=== PATIENT | female | born 1945 | race Caucasian/White ===

== ENCOUNTER 2017-02-18 11:01 | Outpatient (CLI) | payer MEDICARE, OTHER | END 2017-02-18 11:02 | disposition home or self-care (01) | DX: Z12.11 Encounter for screening for malignant neoplasm of colon (principal); Z79.899 Other long term (current) drug therapy; Z12.12 Encounter for screening for malignant neoplasm of rectum; H26.9 Unspecified cataract; C73 Malignant neoplasm of thyroid gland; M81.0 Age-related osteoporosis without current pathological fracture; E78.5 Hyperlipidemia, unspecified; E11.9 Type 2 diabetes mellitus without complications; A60.9 Anogenital herpesviral infection, unspecified; R03.0 Elevated blood-pressure reading, without diagnosis of hypertension; M67.40 Ganglion, unspecified site ==

== ENCOUNTER 2017-02-27 14:14 | Outpatient (CLI) | payer MEDICARE, OTHER ==
--- NOTE | 2017-02-28 12:20 | DEXA Report ---
DEXA SCAN: 02/27/2017 CLINICAL INDICATION: Osteoporosis. TECHNIQUE: Dual energy x-ray absorptiometry (DXA) was performed on a [employer] system. Regions measured are the AP spine, femoral neck, and, if needed, forearm. COMPARISON: None. In accordance with the International Society for Clinical Densitometry (ISCD) guidelines, data from previous exams may be reanalyzed using current recommendations and techniques. This is done to allow a more accurate basis for comparison with the current study. FINDINGS: The data for the lumbar spine is as follows: REGION BMD (g/cm/cm) T-SCORE Z-SCORE L1 0.950 -1.5 0.1 L2 1.069 -1.1 0.5 L3 1.133 -0.6 1.0 L4 1.188 -0.1 1.5 TOTAL 1.094 -0.7 0.9 NOTE: All evaluable vertebrae are used for classification. The data for the hip is as follows: REGION BMD (g/cm/cm) T-SCORE Z-SCORE Neck 0.778 -1.9 -0.1 TOTAL 0.702 -2.4 -0.9 NOTE: The femoral neck or total proximal femur, whichever is lowest, is used for classification. IMPRESSION: THE WHO CLASSIFICATION BASED ON THE INTERNATIONAL REFERENCE STANDARD IS OSTEOPENIA. THE FRACTURE RISK IS INCREASED. RECOMMENDATION: Patients with diagnosis of osteoporosis or osteopenia should have regular bone mineral density assessment. For those eligible for Medicare, routine testing is allowed once every 2 years. Testing frequency can be increased for patients who have rapidly progressing disease or for those who are receiving medical therapy to restore bone mass. COMMENT: World Health Organization (WHO) definitions for osteoporosis and osteopenia: NORMAL BMD: T-score at -1.0 or higher, fracture risk is low. OSTEOPENIA BMD: T-score between -1.0 and -2.5, fracture risk is increased. OSTEOPOROSIS BMD: T-score at -2.5 or lower, fracture risk high. National Osteoporosis Foundation recommends: 1. Obtain adequate dietary calcium (at least 1200 mg per day) and vitamin D (400 -800 international units per day). 2. Participate, as appropriate, in regular weightbearing and muscle- strengthening exercise. 3. Avoid tobacco use and reduce alcohol and caffeine intake. 4. For more detailed information see the website at www.NOF.org. MTDD
== END 2017-02-27 14:15 | disposition home or self-care (01) ==
LOC: DI 14:14
PROVIDERS: ATTEND Internal Medicine
DX: M85.89 Other specified disorders of bone density and structure, multiple sites (principal)
CPT/HCPCS: 77080

== ENCOUNTER 2017-06-25 10:50 | Outpatient (CLI) | payer MEDICARE, OTHER ==
[2017-06-25 11:35] LABS: CHOL/HDL RATIO 4.2 (<4.4); CHOLESTEROL 192 mg/dL; HDL CHOLESTEROL 46 mg/dL; LDL/HDL RATIO 2.6 (<4.4); TRIGLYCERIDES 138 mg/dL; VLDL CHOLESTEROL 28 mg/dL
== END 2017-06-25 10:51 | disposition home or self-care (01) ==
LOC: LAB 10:50
PROVIDERS: ATTEND Internal Medicine
DX: E78.5 Hyperlipidemia, unspecified (principal); C73 Malignant neoplasm of thyroid gland
CPT/HCPCS: 36415; 80061; 84443

== ENCOUNTER 2017-08-29 11:35 | Outpatient (CLI) | payer MEDICARE, OTHER ==
[2017-08-29 17:40] LABS: BASOPHILS % (AUTO) 0.5 %; EOSINOPHILS # (AUTO) 0.1 10^3/uL (0.0-0.7); EOSINOPHILS % (AUTO) 0.9 %; HCT - HEMATOCRIT 40.4 % (37.0-47.0); HGB - HEMOGLOBIN 13.6 g/dL (12.0-16.0); LYMPHOCYTES # (AUTO) 2.1 10^3/uL (1.5-3.5); MEAN CORPUSCULAR HEMOGLOBIN 29.8 pg (27.0-31.0); MEAN CORPUSCULAR HGB CONC 33.6 g/dL (32.0-36.0); MEAN CORPUSCULAR VOLUME 88.5 fL (81.0-99.0); MEAN PLATELET VOLUME 9.1 fL (7.9-10.8); MONOCYTES # (AUTO) 0.4 10^3/uL (0.0-1.0); MONOCYTES % (AUTO) 7.2 %; NEUTROPHILS # (AUTO) 3.5 10^3/uL (1.5-6.6); NEUTROPHILS % (AUTO) 57.4 %; NUCLEATED RED BLOOD CELLS AUTO 0.2 /100WBC; RED BLOOD COUNT 4.56 10^6/uL (4.20-5.40); RED CELL DISTRIBUTION WIDTH 13.1 % (12.0-15.0); UNCORRECTED WHITE BLOOD COUNT 6.1 x10^3/uL; WHITE BLOOD COUNT 6.1 x10^3/uL (4.8-10.8)
[2017-08-29 17:57] LABS: ALBUMIN/GLOBULIN RATIO 1.3 (1.0-2.2); BILIRUBIN,TOTAL 0.9 mg/dL (0.2-1.0); BUN - BLOOD UREA NITROGEN 15 mg/dL (6-20); CALCIUM 9.4 mg/dL (8.5-10.3); CARBON DIOXIDE - CO2 30 mmol/L (21-32); CHLORIDE 97 mmol/L (101-111); CHOL/HDL RATIO 3.9 (<4.4); CHOLESTEROL 173 mg/dL; CREATININE 0.9 mg/dL (0.4-1.0); GFR - MDRD 61 (>89); GLUCOSE 132 mg/dL (70-100); HDL CHOLESTEROL 44 mg/dL; LDL/HDL RATIO 2.4 (<4.4); POTASSIUM 3.2 mmol/L (3.5-5.0); SODIUM 137 mmol/L (135-145); TOTAL PROTEIN 7.8 g/dL (6.7-8.2); TRIGLYCERIDES 115 mg/dL; VLDL CHOLESTEROL 23 mg/dL
[2017-08-29 18:08] LABS: THYROID STIMULATING HORMONE 0.13 uIU/mL (0.34-5.60)
[2017-08-29 18:21] LABS: HEMOGLOBIN A1C 0.7 g/dL
== END 2017-08-29 11:36 | disposition home or self-care (01) ==
LOC: LAB.F 11:35
PROVIDERS: ATTEND Physician Assistant Medical
DX: E03.9 Hypothyroidism, unspecified (principal); E78.5 Hyperlipidemia, unspecified; E11.9 Type 2 diabetes mellitus without complications; Z51.81 Encounter for therapeutic drug level monitoring; Z79.899 Other long term (current) drug therapy; Z85.850 Personal history of malignant neoplasm of thyroid
CPT/HCPCS: 36415; 80053; 80061; 83036; 84439; 84443; 85025

== ENCOUNTER 2017-09-26 11:26 | Outpatient (CLI) | payer MEDICARE, OTHER | END 2017-09-26 11:27 | disposition home or self-care (01) | LOC: LAB.F 11:26 | PROVIDERS: ATTEND Physician Assistant Medical | DX: E03.9 Hypothyroidism, unspecified (principal) | CPT/HCPCS: 36415; 84443 ==

== ENCOUNTER 2017-10-24 15:25 | Outpatient (CLI) | payer MEDICARE, OTHER ==
[2017-10-24 17:20] LABS: THYROID STIMULATING HORMONE 1.79 uIU/mL (0.34-5.60)
[2017-10-24 17:22] LABS: FREE T4 (FREE THYROXINE) 1.21 ng/dL (0.58-1.64)
[2017-10-27 13:20] LABS: THYROGLOBULIN <0.1 ng/mL
== END 2017-10-24 15:26 | disposition home or self-care (01) ==
LOC: LAB 15:25
PROVIDERS: ATTEND Internal Medicine Endocrinology, Diabetes & Metabolism
DX: E89.0 Postprocedural hypothyroidism (principal)
CPT/HCPCS: 36415; 84432; 84439; 84443; 86800

== ENCOUNTER 2018-04-27 09:43 | Outpatient (CLI) | payer MEDICARE, OTHER ==
[2018-04-27 17:52] LABS: BASOPHILS % (AUTO) 0.4 %; EOSINOPHILS # (AUTO) 0.1 10^3/uL (0.0-0.7); EOSINOPHILS % (AUTO) 1.3 %; HGB - HEMOGLOBIN 12.9 g/dL (12.0-16.0); LYMPHOCYTES # (AUTO) 2.3 10^3/uL (1.5-3.5); MEAN CORPUSCULAR HEMOGLOBIN 30.4 pg (27.0-31.0); MEAN CORPUSCULAR HGB CONC 33.3 g/dL (32.0-36.0); MEAN CORPUSCULAR VOLUME 91.4 fL (81.0-99.0); MEAN PLATELET VOLUME 8.4 fL (7.9-10.8); MONOCYTES # (AUTO) 0.5 10^3/uL (0.0-1.0); MONOCYTES % (AUTO) 7.8 %; NEUTROPHILS # (AUTO) 3.2 10^3/uL (1.5-6.6); NEUTROPHILS % (AUTO) 52.5 %; PLT - PLATELET COUNT 245 10^3/uL (130-450); RED BLOOD COUNT 4.24 10^6/uL (4.20-5.40); RED CELL DISTRIBUTION WIDTH 13.2 % (12.0-15.0)
[2018-04-27 18:45] LABS: ALBUMIN/GLOBULIN RATIO 1.3 (1.0-2.2); ALKALINE PHOSPHATASE 69 IU/L (42-121); ALT ALANINE AMINOTRANSFERASE 19 IU/L (10-60); AST ASPARTATE AMINOTRANSFERASE 23 IU/L (10-42); BILIRUBIN,TOTAL 0.9 mg/dL (0.2-1.0); BUN - BLOOD UREA NITROGEN 17 mg/dL (6-20); CALCIUM 9.1 mg/dL (8.5-10.3); CARBON DIOXIDE - CO2 31 mmol/L (21-32); CHLORIDE 102 mmol/L (101-111); CHOL/HDL RATIO 3.3 (<4.4); CHOLESTEROL 157 mg/dL; GFR - MDRD 54 (>89); GLUCOSE 114 mg/dL (70-100); HDL CHOLESTEROL 48 mg/dL; LDL CHOLESTEROL,CALCULATED 91 mg/dL; LDL/HDL RATIO 1.9 (<4.4); SODIUM 141 mmol/L (135-145); TOTAL PROTEIN 7.2 g/dL (6.7-8.2); VLDL CHOLESTEROL 18 mg/dL
[2018-04-27 19:48] LABS: HB2 TOTAL 13.7 g/dL; HEMOGLOBIN A1C 0.58 g/dL
== END 2018-04-27 09:44 | disposition home or self-care (01) ==
LOC: LAB.F 09:43
PROVIDERS: ATTEND Physician Assistant Medical
DX: E78.5 Hyperlipidemia, unspecified (principal); E11.9 Type 2 diabetes mellitus without complications; E03.9 Hypothyroidism, unspecified; Z51.81 Encounter for therapeutic drug level monitoring
CPT/HCPCS: 36415; 80053; 80061; 82043; 83036; 83721; 84443; 85025

== ENCOUNTER 2018-06-02 10:17 | Outpatient (CLI) | payer MEDICARE, OTHER | END 2018-06-02 10:18 | disposition home or self-care (01) | LOC: LAB.F 10:17 | PROVIDERS: ATTEND Physician Assistant Medical | DX: E87.5 Hyperkalemia (principal) | CPT/HCPCS: 36415; 84132 ==

== ENCOUNTER 2018-07-09 10:10 | Outpatient (CLI) | payer MEDICARE, OTHER | END 2018-07-09 10:11 | disposition home or self-care (01) | LOC: LAB.F 10:10 | PROVIDERS: ATTEND Physician Assistant Medical | DX: E87.6 Hypokalemia (principal) | CPT/HCPCS: 36415; 84132 ==

== ENCOUNTER 2019-04-07 11:40 | Outpatient (CLI) | payer MEDICARE, OTHER ==
[2019-04-07 17:24] LABS: BASOPHILS % (AUTO) 0.6 %; EOSINOPHILS # (AUTO) 0.1 10^3/uL (0.0-0.7); HGB - HEMOGLOBIN 13.1 g/dL (12.0-16.0); LYMPHOCYTES # (AUTO) 2.2 10^3/uL (1.5-3.5); LYMPHOCYTES % (AUTO) 32.8 %; MEAN CORPUSCULAR HEMOGLOBIN 29.4 pg (27.0-31.0); MEAN CORPUSCULAR HGB CONC 31.3 g/dL (32.0-36.0); MEAN CORPUSCULAR VOLUME 94.2 fL (81.0-99.0); MEAN PLATELET VOLUME 10.5 fL (7.9-10.8); MONOCYTES # (AUTO) 0.5 10^3/uL (0.0-1.0); MONOCYTES % (AUTO) 6.8 %; NEUTROPHILS % (AUTO) 58.5 %; PLT - PLATELET COUNT 257 10^3/uL (130-450); RED BLOOD COUNT 4.45 10^6/uL (4.20-5.40); RED CELL DISTRIBUTION WIDTH 12.6 % (12.0-15.0); WHITE BLOOD COUNT 6.8 x10^3/uL (4.8-10.8)
[2019-04-07 17:31] LABS: ALBUMIN 4.3 g/dL (3.2-5.5); ALBUMIN/GLOBULIN RATIO 1.3 (1.0-2.2); BILIRUBIN,TOTAL 0.5 mg/dL (0.2-1.0); CALCIUM 9.4 mg/dL (8.5-10.3); TOTAL PROTEIN 7.6 g/dL (6.7-8.2)
[2019-04-07 17:36] LABS: CREATININE,URINE 80.6 mg/dL; MICROALBUM/CREATININE RATIO,UR 3.7 ug/mg (<30.0); MICROALBUMIN,URINE 0.3 mg/dL (0-300.0)
[2019-04-07 18:38] LABS: HB2 TOTAL 13.5 g/dL; HEMOGLOBIN A1C 0.59 g/dL; HEMOGLOBIN A1C % 6.1 % (4.6-6.2)
== END 2019-04-07 11:41 | disposition home or self-care (01) ==
LOC: LAB.F 11:40
PROVIDERS: ATTEND Physician Assistant Medical
DX: I10 Essential (primary) hypertension (principal); E11.9 Type 2 diabetes mellitus without complications; E03.9 Hypothyroidism, unspecified
CPT/HCPCS: 36415; 80053; 82043; 82570; 83036; 84443; 85025

== ENCOUNTER 2019-04-20 08:00 | Outpatient (CLI) | payer MEDICARE, OTHER ==
[2019-04-20 17:42] LABS: THYROID STIMULATING HORMONE 5.5 uIU/mL (0.34-5.60)
[2019-04-20 17:44] LABS: FREE T4 (FREE THYROXINE) 1.26 ng/dL (0.58-1.64)
[2019-04-22 10:36] LABS: THYROGLOBULIN <0.1 ng/mL
== END 2019-04-20 23:59 | disposition home or self-care (01) ==
LOC: LAB 08:00
PROVIDERS: ATTEND Internal Medicine Endocrinology, Diabetes & Metabolism
DX: E89.0 Postprocedural hypothyroidism (principal); Z85.850 Personal history of malignant neoplasm of thyroid
CPT/HCPCS: 36415; 84432; 84439; 84443; 86800

== ENCOUNTER 2019-07-07 12:10 | Outpatient (CLI) | payer MEDICARE, OTHER ==
[2019-07-07 13:54] LABS: THYROID STIMULATING HORMONE 0.4 uIU/mL (0.34-5.60)
[2019-07-07 13:55] LABS: FREE T4 (FREE THYROXINE) 1.59 ng/dL (0.58-1.64)
== END 2019-07-07 12:11 | disposition home or self-care (01) ==
LOC: LAB 12:10
PROVIDERS: ATTEND Internal Medicine Endocrinology, Diabetes & Metabolism
DX: E89.0 Postprocedural hypothyroidism (principal); Z85.850 Personal history of malignant neoplasm of thyroid
CPT/HCPCS: 36415; 84432; 84439; 84443; 86800

== ENCOUNTER 2019-09-15 12:51 | Outpatient (CLI) | payer MEDICARE, OTHER ==
[2019-09-15 13:52] LABS: THYROID STIMULATING HORMONE 0.42 uIU/mL (0.34-5.60)
[2019-09-15 13:54] LABS: FREE T4 (FREE THYROXINE) 1.62 ng/dL (0.58-1.64)
[2019-09-15 14:23] LABS: HB2 TOTAL 13.3 g/dL; HEMOGLOBIN A1C 0.59 g/dL; HEMOGLOBIN A1C % 6.2 % (4.6-6.2)
== END 2019-09-15 12:52 | disposition home or self-care (01) ==
LOC: LAB 12:51
PROVIDERS: ATTEND Internal Medicine Endocrinology, Diabetes & Metabolism
DX: E89.0 Postprocedural hypothyroidism (principal); Z85.850 Personal history of malignant neoplasm of thyroid
CPT/HCPCS: 36415; 83036; 84432; 84439; 84443; 86800

== ENCOUNTER 2020-08-02 13:41 | Outpatient (CLI) | payer MEDICARE, OTHER ==
[2020-08-02 15:07] LABS: THYROID STIMULATING HORMONE 0.64 uIU/mL (0.34-5.60)
[2020-08-02 15:09] LABS: FREE T4 (FREE THYROXINE) 1.63 ng/dL (0.58-1.64)
== END 2020-08-02 13:42 | disposition home or self-care (01) ==
LOC: LAB 13:41
PROVIDERS: ATTEND Internal Medicine Endocrinology, Diabetes & Metabolism
DX: E89.0 Postprocedural hypothyroidism (principal)
CPT/HCPCS: 36415; 84432; 84439; 84443; 86800

== ENCOUNTER 2020-09-01 16:54 | Outpatient (CLI) | payer MEDICARE, OTHER ==
[2020-09-01 18:05] LABS: CALCIUM 8.9 mg/dL (8.5-10.3)
--- NOTE | 2020-09-02 02:11 | Ultrasound Report ---
PROCEDURE: Head or Neck Soft Tissue INDICATIONS: POST-SURGICAL HYPOTHYROIDISM TECHNIQUE: Real time scanning was performed of the neck region of interest, with image documentation . COMPARISON: None. FINDINGS: The patient is status post thyroidectomy. In the right thyroidectomy bed there is an 8 x 4 x 7 mm hypoechoic nodule. In the left thyroidectomy bed there is a 5 x 5 x 7 mm hyperechoic nodule. IMPRESSION: Subcentimeter nodules are seen in the right and left thyroidectomy beds. Recommend close follow-up with ultrasound or CT. Reviewed by: William Irizarry on 09/02/2020 2:09 AM [facility] Approved by: William Irizarry on 09/02/2020 2:09 AM [facility] Station ID: [id number]
== END 2020-09-01 16:55 | disposition home or self-care (01) ==
LOC: DI 16:54
PROVIDERS: ATTEND Internal Medicine Endocrinology, Diabetes & Metabolism
DX: E04.2 Nontoxic multinodular goiter (principal)
CPT/HCPCS: 36415; 76536; 80048

== ENCOUNTER 2021-03-30 09:55 | Outpatient (CLI) | payer MEDICARE, OTHER ==
[2021-03-30 10:27] LABS: BASOPHILS % (AUTO) 0.5 %; EOSINOPHILS # (AUTO) 0.1 10^3/uL (0.0-0.7); EOSINOPHILS % (AUTO) 1.4 %; HCT - HEMATOCRIT 41.4 % (37.0-47.0); HGB - HEMOGLOBIN 13.5 g/dL (12.0-16.0); LYMPHOCYTES # (AUTO) 2.1 10^3/uL (1.5-3.5); MEAN CORPUSCULAR HEMOGLOBIN 30.1 pg (27.0-31.0); MEAN CORPUSCULAR HGB CONC 32.6 g/dL (32.0-36.0); MEAN CORPUSCULAR VOLUME 92.2 fL (81.0-99.0); MONOCYTES # (AUTO) 0.5 10^3/uL (0.0-1.0); MONOCYTES % (AUTO) 7.7 %; NEUTROPHILS # (AUTO) 3.9 10^3/uL (1.5-6.6); NEUTROPHILS % (AUTO) 58.2 %; PLT - PLATELET COUNT 250 10^3/uL (130-450); RED BLOOD COUNT 4.49 10^6/uL (4.20-5.40); RED CELL DISTRIBUTION WIDTH 12.4 % (12.0-15.0); WHITE BLOOD COUNT 6.6 x10^3/uL (4.8-10.8)
[2021-03-30 10:39] LABS: ALBUMIN 4.3 g/dL (3.2-5.5); ALBUMIN/GLOBULIN RATIO 1.2 (1.0-2.2); ALKALINE PHOSPHATASE 77 IU/L (42-121); ALT ALANINE AMINOTRANSFERASE 16 IU/L (10-60); AST ASPARTATE AMINOTRANSFERASE 19 IU/L (10-42); BILIRUBIN,TOTAL 0.7 mg/dL (0.2-1.0); BUN - BLOOD UREA NITROGEN 18 mg/dL (6-20); CALCIUM 9.4 mg/dL (8.5-10.3); CARBON DIOXIDE - CO2 28 mmol/L (21-32); CHLORIDE 103 mmol/L (101-111); CHOL/HDL RATIO 6.4 (<4.4); CHOLESTEROL 286 mg/dL; CREATININE 1.1 mg/dL (0.4-1.0); GFR - MDRD 48 (>89); GLUCOSE 132 mg/dL (70-100); HDL CHOLESTEROL 45 mg/dL; LDL CHOLESTEROL,CALCULATED 200 mg/dL; LDL/HDL RATIO 4.4 (<4.4); POTASSIUM 4.2 mmol/L (3.5-5.0); SODIUM 140 mmol/L (135-145); TOTAL PROTEIN 7.8 g/dL (6.7-8.2); TRIGLYCERIDES 203 mg/dL; VLDL CHOLESTEROL 41 mg/dL
[2021-03-30 10:51] LABS: THYROID STIMULATING HORMONE 1.91 uIU/mL (0.34-5.60)
[2021-03-30 10:53] LABS: FREE T4 (FREE THYROXINE) 1.55 ng/dL (0.58-1.64)
[2021-03-30 12:55] LABS: ESTIMATED AVERAGE GLUCOSE 137 mg/dL (70-100); HEMOGLOBIN A1c% 6.4 % (4.27-6.07)
[2021-04-03 14:41] LABS: THYROGLOBULIN <0.1 ng/mL
== END 2021-03-30 09:56 | disposition home or self-care (01) ==
LOC: LAB 09:55
PROVIDERS: ATTEND Registered Nurse
DX: E89.0 Postprocedural hypothyroidism (principal); I10 Essential (primary) hypertension; E78.5 Hyperlipidemia, unspecified; E11.9 Type 2 diabetes mellitus without complications
CPT/HCPCS: 36415; 80053; 80061; 83036; 83721; 84432; 84439; 84443; 85025; 86800

== ENCOUNTER 2022-03-21 10:02 | Outpatient (CLI) | payer MEDICARE, OTHER ==
[2022-03-21 10:46] LABS: BASOPHILS % (AUTO) 0.6 %; EOSINOPHILS # (AUTO) 0.1 10^3/uL (0.0-0.7); EOSINOPHILS % (AUTO) 1.1 %; HCT - HEMATOCRIT 41.5 % (37.0-47.0); HGB - HEMOGLOBIN 13.5 g/dL (12.0-16.0); LYMPHOCYTES # (AUTO) 1.9 10^3/uL (1.5-3.5); LYMPHOCYTES % (AUTO) 28.8 %; MEAN CORPUSCULAR HEMOGLOBIN 29.9 pg (27.0-31.0); MEAN CORPUSCULAR HGB CONC 32.5 g/dL (32.0-36.0); MONOCYTES # (AUTO) 0.5 10^3/uL (0.0-1.0); MONOCYTES % (AUTO) 7.5 %; NEUTROPHILS # (AUTO) 4.1 10^3/uL (1.5-6.6); NEUTROPHILS % (AUTO) 61.7 %; PLT - PLATELET COUNT 277 10^3/uL (130-450); RED BLOOD COUNT 4.51 10^6/uL (4.20-5.40); RED CELL DISTRIBUTION WIDTH 12.7 % (12.0-15.0); WHITE BLOOD COUNT 6.6 x10^3/uL (4.8-10.8)
[2022-03-21 11:05] LABS: ALBUMIN 4.4 g/dL (3.2-5.5); ALBUMIN/GLOBULIN RATIO 1.2 (1.0-2.2); ALKALINE PHOSPHATASE 70 IU/L (42-121); ALT ALANINE AMINOTRANSFERASE 18 IU/L (10-60); AST ASPARTATE AMINOTRANSFERASE 21 IU/L (10-42); BILIRUBIN,TOTAL 0.6 mg/dL (0.2-1.0); BUN - BLOOD UREA NITROGEN 20 mg/dL (6-20); CALCIUM 9.6 mg/dL (8.5-10.3); CARBON DIOXIDE - CO2 30 mmol/L (21-32); CHLORIDE 102 mmol/L (101-111); CHOL/HDL RATIO 5.9 (<4.4); CHOLESTEROL 275 mg/dL; CREATININE 1.1 mg/dL (0.4-1.0); GFR - MDRD 48 (>89); GLUCOSE 127 mg/dL (70-100); HDL CHOLESTEROL 47 mg/dL; LDL CHOLESTEROL,CALCULATED 192 mg/dL; LDL/HDL RATIO 4.1 (<4.4); POTASSIUM 4.1 mmol/L (3.5-5.0); SODIUM 140 mmol/L (135-145); TOTAL PROTEIN 8.2 g/dL (6.7-8.2); TRIGLYCERIDES 181 mg/dL; VLDL CHOLESTEROL 36 mg/dL
[2022-03-21 11:12] LABS: T4 (THYROXINE) 11.63 ug/dL (6.09-12.23)
[2022-03-21 11:18] LABS: THYROID STIMULATING HORMONE 0.6 uIU/mL (0.34-5.60)
[2022-03-21 12:04] LABS: ESTIMATED AVERAGE GLUCOSE 134 mg/dL (70-100); HEMOGLOBIN A1c% 6.3 % (4.27-6.07)
[2022-03-22 10:53] LABS: CREATININE,URINE 149.7 mg/dL; MICROALBUMIN,URINE 1.8 mg/dL (0-300.0)
== END 2022-03-21 10:03 | disposition home or self-care (01) ==
LOC: LAB 10:02
PROVIDERS: ATTEND Registered Nurse
DX: I12.9 Hypertensive chronic kidney disease with stage 1 through stage 4 chronic kidney disease, or unspecified chronic kidney disease (principal); E11.22 Type 2 diabetes mellitus with diabetic chronic kidney disease; N18.31 Chronic kidney disease, stage 3a; E78.5 Hyperlipidemia, unspecified; Z85.850 Personal history of malignant neoplasm of thyroid
CPT/HCPCS: 36415; 80053; 80061; 81599; 82043; 82570; 83036; 83519; 83721; 84436; 84443; 84480; 85025; 86800

== ENCOUNTER 2023-01-24 11:30 | Outpatient (CLI) | payer MEDICARE, OTHER | END 2023-01-24 11:45 | disposition home or self-care (01) | LOC: LAB.N 11:30 | PROVIDERS: ATTEND Physician Assistant | DX: L02.91 Cutaneous abscess, unspecified (principal) | CPT/HCPCS: 87070; 87181; 87205 ==

== ENCOUNTER 2023-09-02 10:34 | Outpatient (CLI) | payer MEDICARE, OTHER ==
[2023-09-02 10:47] LABS: BASOPHILS % (AUTO) 0.4 %; EOSINOPHILS # (AUTO) 0.1 10^3/uL (0.0-0.7); EOSINOPHILS % (AUTO) 0.7 %; HGB - HEMOGLOBIN 13.7 g/dL (12.0-16.0); LYMPHOCYTES # (AUTO) 2.1 10^3/uL (1.5-3.5); LYMPHOCYTES % (AUTO) 29.1 %; MEAN CORPUSCULAR HEMOGLOBIN 29.9 pg (27.0-31.0); MEAN CORPUSCULAR HGB CONC 31.9 g/dL (32.0-36.0); MEAN CORPUSCULAR VOLUME 93.9 fL (81.0-99.0); MEAN PLATELET VOLUME 9.7 fL (7.9-10.8); MONOCYTES # (AUTO) 0.5 10^3/uL (0.0-1.0); MONOCYTES % (AUTO) 6.8 %; NEUTROPHILS # (AUTO) 4.6 10^3/uL (1.5-6.6); NEUTROPHILS % (AUTO) 62.9 %; PLT - PLATELET COUNT 276 10^3/uL (130-450); RED BLOOD COUNT 4.58 10^6/uL (4.20-5.40); RED CELL DISTRIBUTION WIDTH 12.4 % (12.0-15.0); WHITE BLOOD COUNT 7.4 x10^3/uL (4.8-10.8)
[2023-09-02 11:01] LABS: ALBUMIN 4.5 g/dL (3.2-5.5); ALBUMIN/GLOBULIN RATIO 1.6 (1.0-2.2); ALKALINE PHOSPHATASE 89 IU/L (42-121); ALT ALANINE AMINOTRANSFERASE 12 IU/L (10-60); AST ASPARTATE AMINOTRANSFERASE 16 IU/L (10-42); BILIRUBIN,TOTAL 0.5 mg/dL (0.2-1.0); BUN - BLOOD UREA NITROGEN 19 mg/dL (6-20); CALCIUM 9.6 mg/dL (8.5-10.3); CARBON DIOXIDE - CO2 31 mmol/L (21-32); CHLORIDE 102 mmol/L (101-111); CHOL/HDL RATIO 6.2 (<4.4); CHOLESTEROL 279 mg/dL; GFR - MDRD 53 (>89); GLUCOSE 125 mg/dL (74-104); HDL CHOLESTEROL 45 mg/dL; LDL CHOLESTEROL,CALCULATED 189 mg/dL; LDL/HDL RATIO 4.2 (<4.4); POTASSIUM 4.1 mmol/L (3.5-4.5); SODIUM 138 mmol/L (135-145); TOTAL PROTEIN 7.3 g/dL (6.4-8.9); TRIGLYCERIDES 227 mg/dL (48-352); VLDL CHOLESTEROL 45 mg/dL
[2023-09-02 11:16] LABS: THYROID STIMULATING HORMONE 9.48 uIU/mL (0.34-5.60)
[2023-09-02 12:03] LABS: ESTIMATED AVERAGE GLUCOSE 131 mg/dL (70-100); HEMOGLOBIN A1c% 6.2 % (4.27-6.07)
== END 2023-09-02 10:35 | disposition home or self-care (01) ==
LOC: LAB 10:34
PROVIDERS: ATTEND Registered Nurse
DX: E11.9 Type 2 diabetes mellitus without complications (principal); E78.5 Hyperlipidemia, unspecified; I10 Essential (primary) hypertension; E03.9 Hypothyroidism, unspecified
CPT/HCPCS: 36415; 80053; 80061; 83036; 83721; 84439; 84443; 85025

== ENCOUNTER 2023-11-21 10:19 | Outpatient (CLI) | payer MEDICARE, OTHER ==
[2023-11-21 11:18] LABS: THYROID STIMULATING HORMONE 8.26 uIU/mL (0.34-5.60)
[2023-11-25 22:07] LABS: THYROGLOBULIN ANTIBODY <1.0 IU/mL (0.0-0.9); THYROGLOBULIN BY IMA <0.1 ng/mL (1.5-38.5)
== END 2023-11-21 10:20 | disposition home or self-care (01) ==
LOC: LAB 10:19
PROVIDERS: ATTEND Internal Medicine Endocrinology, Diabetes & Metabolism
DX: Z85.850 Personal history of malignant neoplasm of thyroid (principal)
CPT/HCPCS: 36415; 84439; 84443; 84481; 86800

== ENCOUNTER 2024-01-30 10:47 | Outpatient (CLI) | payer MEDICARE, OTHER ==
[2024-01-30 11:35] LABS: THYROID STIMULATING HORMONE 2.19 uIU/mL (0.34-5.60)
[2024-01-31 20:07] LABS: THYROGLOBULIN ANTIBODY <1.0 IU/mL (0.0-0.9); THYROGLOBULIN BY IMA <0.1 ng/mL (1.5-38.5)
== END 2024-01-30 10:48 | disposition home or self-care (01) ==
LOC: LAB 10:47
PROVIDERS: ATTEND Internal Medicine Endocrinology, Diabetes & Metabolism
DX: Z08 Encounter for follow-up examination after completed treatment for malignant neoplasm (principal); Z85.850 Personal history of malignant neoplasm of thyroid
CPT/HCPCS: 36415; 84439; 84443; 86800

== ENCOUNTER 2024-06-10 12:09 | Outpatient (CLI) | payer MEDICARE, OTHER ==
[2024-06-10 13:08] LABS: THYROID STIMULATING HORMONE 0.51 uIU/mL (0.34-5.60)
== END 2024-06-10 12:10 | disposition home or self-care (01) ==
LOC: LAB 12:09
PROVIDERS: ATTEND Internal Medicine Endocrinology, Diabetes & Metabolism
DX: Z85.850 Personal history of malignant neoplasm of thyroid (principal)
CPT/HCPCS: 36415; 84439; 84443